=== PATIENT | male | born 1960 | race Caucasian/White ===

== ENCOUNTER 2022-12-09 09:02 | Day surgery (SDC) | payer OTHER, SELFPAY ==
[2022-12-02 10:41] VITALS: BMI 20.8
[2022-12-09] VITALS (8 sets, daily range): BP systolic 138–149; BP diastolic 78–92; PULSE 69–99; RESP 12–18; TEMP 36.2–36.6; O2SAT 98–100; BMI 20.9
--- NOTE | 2022-12-09 | DI.RAD.S_ITS ---
PROCEDURE: XR LUMBAR SPINE 2-3V INDICATIONS: L3-4 L4-5 LAMINECTOMY TECHNIQUE: 2 views of the lumbar spine were acquired. COMPARISON: [facility], MR, MR LUMBAR SPINE WITHOUT CONTRAST, 11/27/2020, 15:40. [facility], CR, XR LUMBAR SPINE WITH OLBIQUES PLUS FLEXION EXTENSION, 03/13/2021, 14:26. [facility], RF, LUMBAR TRANSFORAMINAL OSWALD, 08/24/2022, 11:34. FINDINGS: Fluoroscopy images demonstrate a surgical port posterior to lumbar spine. IMPRESSION: Intraoperative lumbar spine fluoroscopy images. Dictated by: Cindy Garcia M.D. on 12/09/2022 at 17:16 Approved by: Cindy Garcia M.D. on 12/09/2022 at 17:18
[2022-12-09] MEDS: LACTATED RINGERS 1,000 ML 42 ML IV ×2 (09:52→11:47)
[2022-12-09] MEDS: CLINDAMYCIN 600 MG/50 ML PIGGYBACK 50 MG IV (10:08)
--- NOTE | 2022-12-09 11:00 | SUR.OPER ---
Prone on spine table, head in foam head support, padded chest and pelvic supports, gel pad at knees, lower legs supported by pillows; nipples, genitalia and toes free of pressure, arms secured on foam padded arm boards at <90 degrees abduction. Tape over blanket at thigh secured to table.
[2022-12-09] MEDS: BUPIVACAINE 0.25% (PF) 30 ML, EPINEPHrine 0.3 MG INJ (11:09)
[2022-12-09] MEDS: BUPIVACAINE LIPOSOME 266 MG/20 ML VIAL INJ (11:10)
--- NOTE | 2022-12-09 11:44 | PM.HP.1 ---
History of Present Illness History of Present Illness Date Patient Seen: 12/09/22 Time Patient Seen: 10:00 Date of Onset of Symptoms: 11/14/20 Chief complaint: back pain Narrative: Mr. Ponce is here for scheduled lumbar surgery due to a work injury dating back to 2020. He failed multiple conservative managment. Patient is scheduled for L2-3, L3-4 laminectomy. [facility] Medical History (Updated 12/04/22 @ 13:39 by Helena Martinez RN) Spinal stenosis of lumbar region with neurogenic claudication Surgical History (Updated 12/04/22 @ 13:42 by Helena Martinez RN) History of arthroscopy of right shoulder History of nasal surgery Hx of laminectomy Hx of right inguinal hernia repair S/P epidural steroid injection Social History household members: spouse Smoking Status: Current every day smoker alcohol intake: current Meds Home Medications and Allergies Home Medications Medication Instructions Recorded Confirmed Type diclofenac sodium 50 mg 50 mg PO TID PRN Pain 12/04/22 12/04/22 History tablet,delayed release methocarbamol 500 mg tablet 500 mg PO QID PRN Pain 12/04/22 12/04/22 History oxycodone 5 mg tablet 5 mg PO Q4H PRN pain #30 tabs 12/09/22 Rx Allergies Allergy/AdvReac Type Severity Reaction Status Date / Time cefaclor Allergy Verified 12/04/22 13:39 nortriptyline Allergy Verified 12/04/22 13:39 Review of Systems Review of Systems ROS: Yes All systems reviewed with the patient and are negative except as otherwise documented Exam Vital Signs (past 8 hours): - 12/09/22 09:35 Temperature 97.9 F Pulse Rate 73 Respiratory Rate 18 Blood Pressure 143/89 H Pulse Oximetry 98 Oxygen Delivery Method Room Air Oxygen Delivery Method Room Air Back/Spine/Pelvis Other: Lumbar scar well healed from previous surgery. Neuro Other: BLE with + straight leg raise, Motor strength 4/5 in bilateral quadriceps, sensibility decreased to bilateral L3, L4 dermatome. Assessment & Plan Assessment & Plan narrative: Risks for surgery include but not limited to bleeding, infection, nerve/dura injury, need for additional procedure, persisting pain. Patient understands and would like to proceed with surgery. I scheduled him for L2-3, L3-4 laminectomies.
--- NOTE | 2022-12-09 11:50 | P.OP_ITS ---
Operative Date/Time/Diagnoses Date of procedure: 12/09/22 Time of procedure: 10:15 Pre-op diagnosis: 1. L2-3, L3-4 spinal stenosis 2. Lumbar radiculopathy Post-op diagnosis: same Procedure & Clinicians Procedure: 1. L2-3 laminectomies with partial facetecomies 2. L3-4 left hemilaminectomy 3. Utilization of microsurgical technique and operating microscope Same procedure as scheduled: Yes Indications: Patient has been having chronic back pain and worsening lumbar radiculopathy. Patient failed multiple conservative management with worsening pain weakness and numbness in his lower extremity. Patient has been having difficulty performing activity of daily living. After discussing risks benefits of treatment options, patient elected proceed with surgery. Surgeon: Anna Deleon [employer] Architect: Ayesha Huber Click Yes if Unassisted: No Anesthesia Type: General Operative Notes Closure Type: primary Estimated Blood Loss (mL): 5 Blood products transfused: none Procedure in detail: Patient was seen in the preoperative area. Risks and benefits of the surgery was discussed with the patient. Informed consent was obtained from the patient and placed in the chart. Surgical site was marked. Patient was taken to the operative room. General anesthesia was administered. Prophylactic antibiotic was given to the patient less than 30 min before the incision was made. Patient was placed into a prone position on the Jaime table. Patient's back was then prepped and draped in the sterile fashion. Time-out was performed at this time. Using AP and lateral C-arm imaging the interval between L2-3 L3-4 was identified and marked on patient's back. A 1 inch incision 1 in from midline was made on the left side. The fascia was incised in line with skin incision. Globus MARS retractors was placed inside the incision and docked onto the L2 lamina. Using microsurgical technique and operating microscope, a L2 laminectomy was performed using a Kerrison rongeur. Liagamentum flavum was resected at the site of the laminotomy. Either side of the dura was exposed. Bilateral partial facetcomies was performed to further decompress the lateral recess. After the laminectomy was completed, the area medial lateral superior and inferior to the area of the laminectomy was inspected and explored using a micro curette. No other impinging structure was identified. The mars retractor was redirected over the L3-4 interval. Using microsurgical technique and operative microscope a hemilaminectomy was performed at L3-4 level. Kerrison rongeur a micro curette was used to free up the ligamentum flavum which was resected during the process of a hemilaminectomy for the further decompressing the epidural space and lateral recess. The wound was then irrigated with sterile normal saline. 40 mg Depo-Medrol was placed into the epidural space. The deep fascia was closed with 1-0 Vicryl. The subcutaneous tissue was closed with 2-0 Vicryl. The skin was closed with skin vic. Patient tolerated the procedure well. There were no complications. Patient was transferred recovery room in stable condition. Complications: none Post-operative Condition: stable Disposition: PACU Plan for aftercare: Discharge to home
[2022-12-09] MEDS: ONDANSETRON 4 MG/2 ML INJ IV (12:00)
[2022-12-09] MEDS: METOCLOPRAMIDE 10 MG/2 ML INJ IV (12:00)
[2022-12-09] MEDS: hydrOXYzine 50 MG/ML INJ 25 MG IM (12:02)
== END 2022-12-09 13:03 | disposition home or self-care (01) ==
PROVIDERS: Referring Provider Orthopaedic Surgery Orthopaedic Surgery of the Spine; Visit Provider Orthopaedic Surgery Orthopaedic Surgery of the Spine
PROC: (CPT 63047; principal; 2022-12-09 10:15)
DX: M48.062 Spinal stenosis, lumbar region with neurogenic claudication (principal); M51.26 Other intervertebral disc displacement, lumbar region
CPT/HCPCS: 63047; 63048; 72100; 76000; C9290; J0171; J0330; J1100; J2250; J2405; J2704; J2765; J3010; J3410